=== PATIENT | male | born 1960 | race African-American/Black ===

== ENCOUNTER 2025-03-30 01:25 | Emergency (ER) | payer OTHER ==
[2025-03-30] MEDS ORDERED: Ondansetron PF 4 MG/2 ML Vial ONE (01:51)
[2025-03-30 01:52] LABS: Hematocrit 44.9 % (42.0-52.0); Hemoglobin 15.4 g/dL (14.0-18.0); Mean Corpuscular Hemoglobin 28.7 pg (27.0-31.0); Mean Corpuscular Volume 83.5 fl (78.0-98.0); Platelet Count 194 10x3/uL (130-400); Red Blood Cell (RBC) Count 5.37 mill/uL (4.70-6.10); White Blood Cell (WBC) Count 7.7 10x3/uL (4.8-10.8)
[2025-03-30 02:00] LABS: INR-International Normal Ratio 2.1; Prothrombin Time 23.4 sec (12.0-14.7)
[2025-03-30 02:01] LABS: PTT 39.9 sec (22.9-36.1)
[2025-03-30 02:04] LABS: ALT (SGPT) 23 U/L (Less than 45); AST (SGOT) 28 U/L (11-34); Albumin 3.9 g/dL (3.1-4.5); Alkaline Phosphatase 99 U/L (40-110); Anion Gap 14 mmol/L (10-20); BUN (Urea Nitrogen) 9 mg/dL (8.4-25.7); Bilirubin, Total 0.4 mg/dL (0.3-1.2); Calc. Creatinine Clearance 0 mL/min (70-130); Calcium 8.5 mg/dL (7.8-10.44); Carbon Dioxide 20 mmol/L (23-31); Chloride 108 mmol/L (98-107); Globulin 3.0 g/dL (2.4-3.5); Glucose 97 mg/dL (80-115); MDiff Complete? YES; Platelet Adequacy Comment Appears Adequate; Potassium 4.0 mmol/L (3.5-5.1); Sodium 138 mmol/L (136-145)
[2025-03-30 02:06] LABS: Troponin I 0.014 ng/mL (< 0.028)
[2025-03-30 02:41] LABS: Troponin I 0.013 ng/mL (< 0.028)
[2025-03-30] MEDS ORDERED: Enoxaparin 100 MG (1 mL) SYRINGE ONE (02:53)
== END 2025-03-30 03:50 | disposition short-term general hospital (02) ==
LOC: EEVIPCON 01:25 → NAV ERS 01:25
DX: I21.4 Non-ST elevation (NSTEMI) myocardial infarction (principal); E11.9 Type 2 diabetes mellitus without complications; K21.9 Gastro-esophageal reflux disease without esophagitis; I11.0 Hypertensive heart disease with heart failure; I50.9 Heart failure, unspecified; I48.91 Unspecified atrial fibrillation; E78.5 Hyperlipidemia, unspecified; Z79.82 Long term (current) use of aspirin; Z79.899 Other long term (current) drug therapy; Z79.01 Long term (current) use of anticoagulants
CPT/HCPCS: 36415; 71045; 80053; 83880; 84484; 85025; 85610; 85730; 93005; 94760; 96374; 96375; J1650; J2405; J3010